=== PATIENT | female | born 1980 | race African-American/Black ===

== ENCOUNTER 2017-10-03 06:17 | Emergency (ER) | payer MEDICAID ==
[~2017-10-03] VITALS: Ht 154.9 cm; Wt 86.0 kg
[2017-10-03] MEDS ORDERED: MORPHINE SULFATE 10 MG/ML CPJ IM ONE (08:15)
[2017-10-03] MEDS ORDERED: KETOROLAC 30MG/ML VIAL IM ONE (09:45)
[2017-10-03 10:36] VITALS: BP 113/82
== END 2017-10-03 11:50 | disposition home or self-care (01) ==
LOC: ER 06:17
DX: K08.89 Other specified disorders of teeth and supporting structures (principal); E11.9 Type 2 diabetes mellitus without complications
CPT/HCPCS: 81025; 96372; 99284; J1885; J2270